=== PATIENT | male | born 1995 | race Caucasian/White ===

== ENCOUNTER 2018-04-29 12:58 | Inpatient (IN) | payer OTHER ==
[~2018-04-29] VITALS: Ht 188 cm; Wt 86.0 kg
[2018-04-29 13:36] LABS: MEAN CORPUSCULAR VOLUME 88.5 fL (81-97); MEAN PLATELET VOLUME 8.9 fL (7.4-10.4); PLATELET COUNT 228 x10^3/uL (130-400); RED BLOOD COUNT 5.29 x10^6/uL (4.38-5.82); RED CELL DISTRIBUTION WIDTH 13.5 % (9.4-14.8)
[2018-04-29] MEDS ORDERED: LORazepam 2 MG/ML, 1ML ONE ×2 (13:38→14:20)
[2018-04-29 13:42] LABS: ALANINE AMINOTRANSFERASE 25 U/L (12-78); ALBUMIN 4.5 g/dL (3.4-5.0); ANION GAP 14 mmol/L (5-15); CALCIUM 8.8 mg/dL (8.5-10.1); CHLORIDE 111 mmol/L (98-107)
[2018-04-29 13:43] LABS: SALICYLATE LEVEL < 1.7 mg/dL (2.8-20.0)
[2018-04-29 13:44] LABS: ALKALINE PHOSPHATASE 80 U/L (45-117); BILIRUBIN,TOTAL 0.3 mg/dL (0.2-1.0); TOTAL PROTEIN 7.8 g/dL (6.4-8.2)
[2018-04-29 13:45] LABS: ACETAMINOPHEN < 2 mcg/mL (10-30)
[2018-04-29] MEDS ORDERED: LORazepam 2 MG/ML, 1ML IVPush ONE (14:00)
[2018-04-29 14:17] LABS: BASOPHILS # (AUTO) 0.27 x10^3/uL (0-0.1); BASOPHILS % (AUTO) 1 % (0-1); EOSINOPHILS % (AUTO) 0 % (1-7); LYMPHOCYTES # (AUTO) 0.66 x10^3/uL (1-3.4); LYMPHOCYTES % (AUTO) 3 % (22-44); MD SCAN; MONOCYTES % (AUTO) 5 % (2-9); NEUTROPHILS # (AUTO) 19.83 x10^3/uL (1.8-6.8); NEUTROPHILS % (AUTO) 91 % (42-75)
[2018-04-29] MEDS ORDERED: NS + 20MEQ KCL 1,000 ML IV SCH ×2 (14:28→21:00)
[2018-04-29] MEDS ORDERED: LORazepam 2 MG/ML, 1ML IVPush PRN (14:30)
[2018-04-29] MEDS ORDERED: LABETALOL 5MG/ML, 20ML IVPush PRN (14:30)
[2018-04-29] MEDS ORDERED: hydrALAzine 20 MG/ML, 1ML IVPush PRN (14:30)
[2018-04-29 15:20] VITALS: BP 144/83
[2018-04-29] MEDS: HEPARIN 5,000 UNITS/ML, 1ML SQ SCH ×2 (15:32→22:02)
[2018-04-29 15:35] LABS: AMPHETAMINE SCREEN, URINE Negative (Negative); BARBITURATE SCREEN, URINE Negative (Negative); BENZODIAZEPINE SCREEN, URINE Negative (Negative); CANNABINOID SCREEN, URINE Positive (Negative); COCAINE SCREEN, URINE Negative (Negative); METHADONE SCREEN, URINE Negative (Negative); OPIATE SCREEN, URINE Negative (Negative)
[2018-04-29 15:52] LABS: MICROSCOPIC INDICATED
[2018-04-29 15:53] LABS: CULTURE INDICATED? NO
[2018-04-29 16:13] LABS: THYROID STIMULATING HORMONE 0.523 mIU/L (0.358-3.740)
[2018-04-29 16:25] LABS: HEMOGLOBIN A1C 5.1 % (4.2-6.3)
[2018-04-29] MEDS ORDERED: SODIUM CHLORIDE 0.9% 1,000ML IVBOLUS ONE (16:30)
[2018-04-29] MEDS ORDERED: NS + 20MEQ KCL 1,000 ML IV ONE (18:00)
[2018-04-29 20:18] VITALS: BP 144/74
[2018-04-29] MEDS: ACETAMINOPHEN 325 MG TABLET PO PRN (21:14)
[2018-04-29] MEDS: SODIUM CHLORIDE 0.9% 1,000 ML IV SCH (22:02)
[2018-04-29] MEDS: DIPHENHYDRAMINE 25 MG CAPSULE PO PRN (22:28)
[2018-04-30 01:22] VITALS: BP 136/72
[2018-04-30] MEDS: SODIUM CHLORIDE 0.9% 1,000 ML IV SCH ×3 (04:39→19:47)
[2018-04-30] MEDS: HEPARIN 5,000 UNITS/ML, 1ML SQ SCH ×3 (05:00→23:25)
[2018-04-30 05:37] LABS: BASOPHILS # (AUTO) 0.03 x10^3/uL (0-0.1); BASOPHILS % (AUTO) 0 % (0-1); EOSINOPHILS % (AUTO) 0 % (1-7); LYMPHOCYTES # (AUTO) 0.96 x10^3/uL (1-3.4); LYMPHOCYTES % (AUTO) 7 % (22-44); MD NO; MEAN CORPUSCULAR HEMOGLOBIN 30.7 pg (27.5-34.5); MEAN CORPUSCULAR HGB CONC 34.4 g/dL (33.2-36.2); MEAN CORPUSCULAR VOLUME 89.3 fL (81-97); MEAN PLATELET VOLUME 9.2 fL (7.4-10.4); MONOCYTES # (AUTO) 0.91 x10^3/uL (0.2-0.8); MONOCYTES % (AUTO) 6 % (2-9); NEUTROPHILS # (AUTO) 12.45 x10^3/uL (1.8-6.8); NEUTROPHILS % (AUTO) 87 % (42-75); PLATELET COUNT 182 x10^3/uL (130-400); RED BLOOD COUNT 4.35 x10^6/uL (4.38-5.82); RED CELL DISTRIBUTION WIDTH 13.9 % (9.4-14.8)
[2018-04-30 05:46] LABS: CHLORIDE 116 mmol/L (98-107)
[2018-04-30 05:47] LABS: ANION GAP 7 mmol/L (5-15); CALCIUM 8.7 mg/dL (8.5-10.1); CREATININE 1.38 mg/dL (0.7-1.3)
[2018-04-30] MEDS ORDERED: POTASSIUM PHOSPHATE 44 MEQ in SODIUM CHLORIDE 0.9% 500 ML IV ONE (07:30)
[2018-04-30 07:50] VITALS: BP 132/79
[2018-04-30] MEDS: ACETAMINOPHEN 325 MG TABLET PO PRN ×2 (08:13→17:09)
[2018-04-30] MEDS ORDERED: LIDODERM 5% PATCH TD PRN (12:00)
[2018-04-30 12:47] VITALS: BP 135/71
[2018-04-30] MEDS ORDERED: NS + 20MEQ KCL 1,000 ML IV SCH (14:28)
[2018-04-30 20:16] VITALS: BP 142/64
[2018-04-30] MEDS: DIPHENHYDRAMINE 25 MG CAPSULE PO PRN (23:25)
[2018-05-01 02:11] VITALS: BP 136/70
[2018-05-01] MEDS: SODIUM CHLORIDE 0.9% 1,000 ML IV SCH ×2 (02:40→08:54)
[2018-05-01] MEDS: HEPARIN 5,000 UNITS/ML, 1ML SQ SCH (06:21)
[2018-05-01 07:55] VITALS: BP 151/66
== END 2018-05-01 10:25 | disposition home or self-care (01) | DRG 101 ==
LOC: ED 13:48 → EDIP 13:49 → ED 13:51 → 4EST 14:41
PROVIDERS: ADMIT Hospitalist; ATTEND Hospitalist
DX: R56.9 Unspecified convulsions (principal); D72.829 Elevated white blood cell count, unspecified; F12.90 Cannabis use, unspecified, uncomplicated; G89.29 Other chronic pain; M54.9 Dorsalgia, unspecified; Z82.5 Family history of asthma and other chronic lower respiratory diseases
CPT/HCPCS: 36415; 70450; 70553; 71045; 80048; 80053; 80307; 80329; 81001; 82140; 83036; 83735; 84100; 84443; 85025; 87040; 93005; 95819; 96374; 99285; G0378; J1644; J3480; G0480; J2060; J7030; J7040; Q0163